=== PATIENT | male | born 1940 | race Caucasian/White ===

== ENCOUNTER 2023-06-04 07:49 | Day surgery (SDC) | payer MEDICARE, OTHER ==
[~2023-06-04 07:49] MED LIST: ALPRAZolam 0.25 MG TAB PO PRN; ALPRAZolam 0.5 MG TAB PO PRN; ASPIRIN 325 MG TAB PO PRN; HEPARIN SODIUM,PORCINE (1 ML) 2,500 UNIT in SODIUM CHLORIDE 0.9% 250 ML IRRIGATION PRN; HEPARIN SODIUM,PORCINE 10,000 UNIT in SODIUM CHLORIDE 0.9% 1,000 ML IRRIGATION PRN; SODIUM CHLORIDE 0.9% 1,000 ML in EMPTY BAG 1 BAG IV ONE; ZOLPIDEM 5 MG TAB PO PRN
[2023-06-04] MEDS ORDERED: ASPIRIN 81 MG ONE (08:05)
[2023-06-04] MEDS ORDERED: HEPARIN SODIUM 1,000 UN/ML (10ML VL) ONE (08:15)
[2023-06-04] MEDS ORDERED: fentaNYL (PF) 50 MCG/ML 2 ML AMP ONE (08:18)
[2023-06-04] MEDS ORDERED: LIDOCAINE 1% INJ 10MG/ML (20 ML MDV) SQ ONE (08:18)
[2023-06-04] MEDS ORDERED: MIDAZOLAM 2 MG/2 ML VIAL IVP ONE (08:19)
[2023-06-04] MEDS ORDERED: VERAPAMIL SYRINGE (5 MG/10 ML) INTRAARTER ONE (08:19)
[2023-06-04] MEDS ORDERED: fentaNYL (PF) 50 MCG/ML 2 ML AMP IVP ONE (08:19)
[2023-06-04 08:27] VITALS: RESP 18; TEMP 96.9
[2023-06-04] MEDS ORDERED: HEPARIN SODIUM 1,000 UN/ML (10ML VL) IV ONE (08:30)
[2023-06-04] MEDS ORDERED: NALOXONE 0.4 MG/ML 1 ML VIAL IVP PRN (08:35)
[2023-06-04] MEDS ORDERED: IOPAMIDOL-370 200ML BTL INJ ONE (08:36)
--- NOTE | 2023-06-04 08:40 | P.PCN ---
Date of Procedure: 06/04/23 Operative Findings: AN ABDOMINAL AORTOGRAM AND BILATERAL LOWER EXTREMITIES RUNOFF PERFORMING PHYSICIAN: Saurabh Anaya MD PROCEDURE PERFORMED: 1. An abdominal aortogram 2. Bilateral lower extremities runoff 3. Ultrasound guided access of the right radial artery INDICATION: Intermittent claudication concerning for severe PAD COMPLICATION: None LEVEL OF SEDATION: Moderate was sedation length of 17 minutes APPROACH: Right common femoral artery PROCEDURE DESCRIPTION: After obtaining informed consent and explaining the procedure benefits, risks, and complications, the patient was brought to the cardiac powerhouse laborer. The right radial artery was prepped and draped in sterile fashion. The right radial artery was cannulated using micropuncture technique, under ultrasound guidance. A micropuncture wire was advanced, and the micropuncture sheath was advanced over the wire, then the micropuncture sheath was exchanged over an 0.35 wire into a 5-Mohawk sheath dilator assembly then the wire and dilator were removed and sheath was flushed. We did an abdominal aortogram and bilateral lower extremities runoff using 5- Mohawk pigtail catheter using a power injection. The catheter was initially placed at the level of the renal arteries, and it was pulled into above the bifurcation of the aorta into right and left common iliac arteries. The procedure was completed and there was no complications. SELECTIVE PERIPHERAL ANGIOGRAM: The abdominal aorta: Has mild disease only The common iliac arteries: Both have mild disease only The external iliac arteries: Are normal The internal iliac arteries: Are patent The common femoral arteries: The right common femoral artery appears to have mild disease only and left common femoral artery appeared to have an intermediate disease only Superficial femoral arteries: The right SFA is occluded and the left SFA is occluded as well Popliteal arteries: Both appears to have [id number] disease Below the knees: Two-vessel runoff below the knee on the right with anterior tibial and peroneal and 3 vessels run off on the left CONCLUSION: 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
[2023-06-04] MEDS ORDERED: SODIUM CHLORIDE 0.9% 1,000 ML in EMPTY BAG 1 BAG IV SCH (08:45)
[2023-06-04 12:19] VITALS: BP 138/73; PULSE 76
--- NOTE | 2023-06-09 08:37 | IR ---
EXAMINATION TYPE: IR angio abdominal w runoff DATE OF EXAM: 06/04/2023 COMPARISON: NONE HISTORY: Fluoroscopy time. Fluoroscopy was provided to the referring clinician.
== END 2023-06-04 12:14 | disposition home or self-care (01) ==
LOC: CATHCVL 07:49
PROVIDERS: ATTEND Internal Medicine Interventional Cardiology
DX: I73.9 Peripheral vascular disease, unspecified (principal); I25.10 Atherosclerotic heart disease of native coronary artery without angina pectoris; I10 Essential (primary) hypertension; E78.5 Hyperlipidemia, unspecified; Z95.1 Presence of aortocoronary bypass graft; Z79.82 Long term (current) use of aspirin; Z79.899 Other long term (current) drug therapy
CPT/HCPCS: 36200; 75625; 75716; 76937; C1769 ×2; C1894; J2250; J2001; J3010; J1644; Q9967

== ENCOUNTER 2023-07-07 08:22 | Day surgery (SDC) | payer MEDICARE, OTHER ==
[~2023-07-07 08:22] MED LIST changes: -ALPRAZolam 0.5 MG TAB PO PRN; -SODIUM CHLORIDE 0.9% 1,000 ML in EMPTY BAG 1 BAG IV ONE
[2023-07-07] MEDS: SODIUM CHLORIDE 0.9% 1,000 ML IV ONE (08:34)
[2023-07-07 09:02] LABS: Basophils # (A) 0.1 k/uL (0-0.2); Basophils % (A) 1 %; Eosinophils # (A) 0.2 k/uL (0-0.7); Eosinophils % (A) 2 %; HCT 41.7 % (39.0-53.0); HGB 14.3 gm/dL (13.0-17.5); Lymphocytes # (A) 1.4 k/uL (1.0-4.8); Lymphocytes % (A) 20 %; MCH 33.3 pg (25.0-35.0); MCHC 34.4 g/dL (31.0-37.0); MCV 96.7 fL (80.0-100.0); Mean Platelet Volume 8.5; Monocytes # (A) 0.4 k/uL (0-1.0); Monocytes % (A) 6 %; Neutrophils # (A) 4.6 k/uL (1.3-7.7); Neutrophils % (A) 68 %; Platelet Count 222 k/uL (150-450); RBC 4.31 m/uL (4.30-5.90); RDW 13.1 % (11.5-15.5); WBC 6.8 k/uL (3.8-10.6)
[2023-07-07 09:11] LABS: African American GFR (CKD) >90 (>60 ml/min/1.73 sqM); Anion Gap 8 mmol/L; Blood Urea Nitrogen 11 mg/dL (9-20); Carbon Dioxide 24 mmol/L (22-30); Chloride 108 mmol/L (98-107); Glucose 121 mg/dL (74-99); Non-African American GFR(CKD) 78 (>60 ml/min/1.73 sqM); Potassium 3.8 mmol/L (3.5-5.1); Sodium 140 mmol/L (137-145)
[2023-07-07] MEDS: MIDAZOLAM 2 MG/2 ML VIAL IVP ONE (10:59)
[2023-07-07] MEDS: LIDOCAINE 1% INJ 10MG/ML (20 ML MDV) SQ ONE (11:02)
[2023-07-07] MEDS: HEPARIN SODIUM 1,000 UN/ML (10ML VL) IV ONE (11:11)
[2023-07-07] MEDS: HYDROmorphone 0.5 MG/0.5 ML SYRINGE IVP ONE (11:42)
[2023-07-07] MEDS ORDERED: niCARdipine 25 MG/10 ML VIAL ONE (13:13)
[2023-07-07] MEDS: NITROGLYCERIN 1000MCG/10ML SYRINGE INTRAARTER ONE (13:16)
[2023-07-07] MEDS: niCARdipine Syringe (1,000 mcg/10 mL) INTRAARTER ONE (13:17)
[2023-07-07] MEDS: IOPAMIDOL-250 100ML BTL INTRAARTER ONE (13:18)
[2023-07-07] MEDS: SODIUM CHLORIDE 0.9% 500 ML 500 ML with niCARdipine 6.25 MG, NITROGLYCERIN-D5W PMX 0.05... IV ONE (13:19)
[2023-07-07] MEDS ORDERED: NALOXONE 0.4 MG/ML 1 ML VIAL IVP PRN (13:27)
[2023-07-07] MEDS ORDERED: CLOPIDOGREL 75 MG TAB ONE (13:30)
--- NOTE | 2023-07-07 13:40 | P.PCN ---
Date of Procedure: 07/07/23 Operative Findings: PERCUTANEOUS PERIPHERAL INTERVENTION Performing physician Saurabh Anaya M.D. Procedure performed 1. Successful angioplasty and stenting of the right SFA 2. Adjunctive use of intravascular imaging and lithotripsy balloon and orbital atherectomy 3. Right lower extremity angiogram and left common femoral artery angiogram 4. Ultrasound guided access of the left common femoral artery and right anterior tibial artery Indication The patient is an 83-year-old gentleman who was diagnosis and he was symptomatic lower extremity is peripheral arterial disease documented by an angiogram. Please refer to the diagnostic angiogram was performed earlier Approach Left common femoral artery and right anterior tibial artery Complications None Level of sedation Moderate with a sedation time of 143 minutes Procedure description After obtaining an informed consent the patient was brought to the cardiac roving tester laboratory. The left common femoral artery was cannulated using micropuncture technique under ultrasound guidance the micro-puncture wire passed easily then I placed a 6-Finnish 70 cm sheath of the left common femoral artery after the artery was dilated using 6-Finnish dilator. Subsequently I did selective right profunda using 035 stiff Glidewire with a backup support of 5-Finnish rim catheter and then the sheath was advanced over the wire and the catheter to the right common femoral artery. Right lower extremity angiogram was performed and showed occluded right SFA and mild disease involving the right popliteal and 2 vessels run off below the knee with anterior tibial and poor opacification was seen for the posterior tibial and also the peroneal. After that attempting crossing the chronic total occlusion from of was unsuccessful in spite of using 018 and 035 wire. At that point I decided to cross the STREET ROLLER ENGINEER coming from down from the anterior tibial artery. Please note that anticoagulation was initiated using heparin with continuous ACT monitoring throughout the procedure. I accessed the anterior tibial artery using micro-puncture technique under ultrasound guidance and I placed a slender 5/6-Finnish sheath. Subsequently the sheath SideArm was conducted into a cocktail containing heparin and nitroglyceri n and verapamil. Subsequently I was ruled to cross the chronic total occlusion of the right SFA using 014 wire with a backup support of 14 catheter. After that I did intravascular ultrasound which showed heavily calcified right and in the proximal portion I was in the subcubut after that I was in the true lumen. After that I did exchange my wire into atherectomy wire and did orbital atherectomy of the right SFA. Subsequently I did balloon angioplasty using 6 mm balloon but the balloon was not fully expanded and for that reason he decided to do ballooning using lithotripsy/shock wave balloon. After that I did angiogram which showed good/adequate results in the proximal right SFA and dissection appeared to be flow-limiting in the right distal SFA. At that point I decided to cover that stent using stent so I deployed 7.0 x 140 mm Zilve PTX drug-coated stent which was postdilated using 6 mm balloon. Then 4 the proximal portion of the right SFA did balloon angioplasty using a drug-coated balloon. Final angiogram showed excellent angiographic results with by the end I did selective right common iliac angiogram which showed the area to be not flow-limiting and I decided to treat medically. No flow-limiting dissection was identified. By the end I did exchange my long sheath into short sheath using 0357 Glidewire and the procedure was completed was no complication. Postprocedure management 1. Dual antiplatelet therapy 2. Aggressive cholesterol control 3. Risk factors modification 4. Follow-up with the patient
[2023-07-07] MEDS: CLOPIDOGREL 75 MG TAB PO ONE (13:41)
--- NOTE | 2023-07-07 13:45 | IR ---
EXAMINATION TYPE: IR stent intravas non coronary DATE OF EXAM: 07/07/2023 COMPARISON: NONE HISTORY: Fluoroscopy time. Fluoroscopy was provided to the referring clinician.
[2023-07-07] MEDS: ONDANSETRON 4 MG/2 ML VIAL ONE (14:50)
[2023-07-07] MEDS: SODIUM CHLORIDE 0.9% 1,000 ML in EMPTY BAG 1 BAG IV SCH (18:31)
[2023-07-07] MEDS: SODIUM CHLORIDE 0.9% 1,000 ML in EMPTY BAG 1 BAG IV ONE (20:53)
[2023-07-08] MEDS: PANTOPRAZOLE 40 MG TABLET PO SCH (06:12)
[2023-07-08] MEDS: LEVOTHYROXINE 125 MCG TAB PO SCH (06:12)
[2023-07-08 06:55] VITALS: RESP 16
[2023-07-08 08:00] LABS: Basophils # (A) 0.1 k/uL (0-0.2); Basophils % (A) 1 %; Eosinophils # (A) 0.2 k/uL (0-0.7); Eosinophils % (A) 2 %; HCT 43.2 % (39.0-53.0); HGB 14.8 gm/dL (13.0-17.5); Lymphocytes # (A) 0.9 k/uL (1.0-4.8); Lymphocytes % (A) 9 %; MCH 33.4 pg (25.0-35.0); MCHC 34.2 g/dL (31.0-37.0); MCV 97.5 fL (80.0-100.0); Mean Platelet Volume 8.5; Monocytes # (A) 0.5 k/uL (0-1.0); Monocytes % (A) 5 %; Neutrophils # (A) 8.5 k/uL (1.3-7.7); Neutrophils % (A) 81 %; Platelet Count 224 k/uL (150-450); RBC 4.43 m/uL (4.30-5.90); WBC 10.5 k/uL (3.8-10.6)
[2023-07-08 08:18] LABS: African American GFR (CKD) >90 (>60 ml/min/1.73 sqM); Anion Gap 10 mmol/L; Blood Urea Nitrogen 9 mg/dL (9-20); Calcium 9.3 mg/dL (8.4-10.2); Carbon Dioxide 21 mmol/L (22-30); Chloride 109 mmol/L (98-107); Glucose 124 mg/dL (74-99); Non-African American GFR(CKD) 82 (>60 ml/min/1.73 sqM); Potassium 3.9 mmol/L (3.5-5.1); Sodium 140 mmol/L (137-145)
[2023-07-08] MEDS: ATORVASTATIN 20 MG TAB PO SCH (09:40)
[2023-07-08] MEDS: amLODIPine 5 MG TAB PO SCH (09:40)
[2023-07-08] MEDS: ASPIRIN 81 MG PO SCH (09:40)
[2023-07-08] MEDS: lisinopriL 20 MG TAB PO SCH (09:40)
[2023-07-08] MEDS: CLOPIDOGREL 75 MG TAB PO SCH (09:40)
[2023-07-08] MEDS: MULTIVITAMINS, THERA 1 EACH TAB PO SCH (09:40)
[2023-07-08] MEDS: PENTOXIFYLLINE 400 MG TABLET.ER PO SCH (11:58)
[2023-07-08 12:14] VITALS: BP 151/83; PULSE 83; TEMP 98.4
--- NOTE | 2023-07-08 13:15 | P.DS ---
Providers Attending physician: Saurabh Anaya Primary care physician: Ranjeet Muñoz MD Hospital Course: The patient is an 83-year-old gentleman who underwent yesterday successful stenting of the SFA with a good angiographic results and no complication The patient was seen and evaluated this morning. He is asymptomatic and he seemed medically stable. The left groin is soft and nontender was no bruises The patient is going to be discharged home on dual antiplatelet therapy and statin and I will follow-up with the patient next week in the office Plan - Discharge Summary Discharge Rx Participant: No New Discharge Prescriptions: New Clopidogrel [Plavix] 75 mg PO DAILY #90 tablet Continue Pantoprazole [Protonix] 40 mg PO DAILY Levothyroxine Sodium [Synthroid] 125 mcg PO DAILY Aspirin [Adult Low Dose Aspirin EC] 81 mg PO DAILY Unk Multi Vitamin 1 tab PO DAILY lisinopriL 40 mg PO DAILY amLODIPine [Norvasc] 5 mg PO DAILY Pentoxifylline [TRENtal] 400 mg PO DAILY Simvastatin 40 mg PO DAILY Discharge Medication List Aspirin [Adult Low Dose Aspirin EC] 81 mg PO DAILY 06/01/23 [History] Levothyroxine Sodium [Synthroid] 125 mcg PO DAILY 06/01/23 [History] Pantoprazole [Protonix] 40 mg PO DAILY 06/01/23 [History] Pentoxifylline [TRENtal] 400 mg PO DAILY 06/01/23 [History] Simvastatin 40 mg PO DAILY 06/01/23 [History] amLODIPine [Norvasc] 5 mg PO DAILY 06/01/23 [History] lisinopriL 40 mg PO DAILY 06/01/23 [History] Unk Multi Vitamin 1 tab PO DAILY 07/01/23 [History] Clopidogrel [Plavix] 75 mg PO DAILY #90 tablet 07/08/23 [Rx] Follow up Appointment(s)/Referral(s): Saurabh Anaya MD [STAFF PHYSICIAN] - 1 Week (THE OFFICE WILL CALL YOU WITH AN APPOINTMENT DATE AND TIME) Patient Instructions/Handouts: Peripheral Artery Disease (ED), Moderate Sedation (DC) Activity/Diet/Wound Care/Special Instructions: *NO LIFTING, PUSHING, OR PULLING ANYTHING OVER 5 POUND FOR 5 DAYS *NO DRIVING FOR 3 DAYS *YOU CAN REMOVE YOUR DRESSING TOMORROW BUT DO NOT SUBMERSE YOUR PUNCTURE SITE IN WATER FOR A FEW DAYS TO PREVENT INFECTION - SO NO TUB BATHS, POOLS, HOT TUBS, DISHES...ETC *ANY SIGNS OF BLEEDING (HARDNESS, SWELLING, OR EXCESSIVE BRUISING) HOLD DIRECT PRESSURE ON YOUR PUNCTURE SITE AND COME TO THE NEAREST EMERGENCY ROOM TO GET YOUR PUNCTURE SITE LOOKED AT - DO NOT DRIVE YOURSELF! EITHER CALL EMS OR HAVE SOMEONE DRIVE YOU!
== END 2023-07-08 14:16 | disposition home or self-care (01) ==
LOC: CATHCVL 08:22 → 3SCARD 13:25 → CATHCVL 07-08 14:16
PROVIDERS: ATTEND Internal Medicine Interventional Cardiology
DX: I73.9 Peripheral vascular disease, unspecified (principal); I25.10 Atherosclerotic heart disease of native coronary artery without angina pectoris; I10 Essential (primary) hypertension; E78.5 Hyperlipidemia, unspecified; Z79.82 Long term (current) use of aspirin; Z79.02 Long term (current) use of antithrombotics/antiplatelets; Z79.899 Other long term (current) drug therapy
CPT/HCPCS: 76937; 37252; 80048 ×2; 85025 ×2; 37225; C1894 ×2; C1769 ×7; C1714; C1725; C1887; C1753; C1874; C9767; C2623; J2250; J2405; J2001; J1644 ×2; J1170; Q9966; J2305 ×2

== ENCOUNTER 2023-07-21 08:42 | Day surgery (SDC) | payer MEDICARE, OTHER ==
[2023-07-15 12:36] VITALS: BMI 30.5
[~2023-07-21 08:42] MED LIST changes: -ALPRAZolam 0.25 MG TAB PO PRN; -HEPARIN SODIUM,PORCINE (1 ML) 2,500 UNIT in SODIUM CHLORIDE 0.9% 250 ML IRRIGATION PRN; -HEPARIN SODIUM,PORCINE 10,000 UNIT in SODIUM CHLORIDE 0.9% 1,000 ML IRRIGATION PRN; -ZOLPIDEM 5 MG TAB PO PRN
[2023-07-21] MEDS: SODIUM CHLORIDE 0.9% 1,000 ML IV ONE (09:07)
[2023-07-21] MEDS ORDERED: HEPARIN SODIUM 1,000 UN/ML (10ML VL) ONE (10:08)
[2023-07-21] MEDS: MIDAZOLAM 2 MG/2 ML VIAL IVP ONE ×2 (10:10→11:09)
[2023-07-21] MEDS ORDERED: LIDOCAINE 1% INJ 10MG/ML (20 ML MDV) ONE (10:23)
[2023-07-21] MEDS: LIDOCAINE 1% INJ 10MG/ML (20 ML MDV) SQ ONE (10:24)
--- NOTE | 2023-07-21 10:26 | IR ---
EXAMINATION TYPE: IR stent intravas non coronary DATE OF EXAM: 07/21/2023 FLUOROSCOPY Left iliac stenosis, 11.5min fluoro, 18.4Gycm2. 623 images submitted.
[2023-07-21] MEDS: HEPARIN SODIUM 1,000 UN/ML (10ML VL) IVP ONE (10:28)
[2023-07-21] MEDS: IOPAMIDOL-370 100ML BTL INJ ONE (11:57)
[2023-07-21] MEDS ORDERED: PANTOPRAZOLE 40 MG TABLET PO PRN (12:14)
[2023-07-21] MEDS ORDERED: NALOXONE 0.4 MG/ML 1 ML VIAL IVP PRN (12:15)
--- NOTE | 2023-07-21 12:21 | P.PCN ---
Date of Procedure: 07/21/23 Operative Findings: PERCUTANEOUS PERIPHERAL INTERVENTION Performing physician Saurabh Anaya M.D. Procedure performed 1. Successful balloon angioplasty and stenting of the left SFA 2. Adjunctive use of intravascular imaging and shockwave balloon and orbital atherectomy 3. Gradient measurement across the left common femoral artery 4. Successful balloon angioplasty of the left common femoral artery 5. Left lower extremity angiogram and right common femoral artery angiogram and ultrasound guided access of the right common femoral artery Indication Symptomatic 83-year-old gentleman who is known to have occluded left SFA Approach Right common femoral artery Complications None Level of sedation Moderate with a sedation time of 90 minutes Procedure description After obtaining an informed consent the patient was brought to the cardiac laborer adjustable steel joist. The right common femoral artery was cannulated using puncture technique under ultrasound guidance the micro-puncture wire passed easily then I placed a 6-Maltese 70 cm sheath in the right common femoral artery. Subsequently anticoagulation was initiated using heparin with continuous ACT monitoring. I did selective the left superficial femoral artery using 035 stiff Glidewire with a backup support of 5-Maltese rim catheter. After that I was able to advance the sheath over the wire and dilator to the proximal left common femoral artery. Left lower extremity angiogram was performed and showed 3 vessels run off below the knee on the left side with occluded left SFA and intermediate disease involving the left common femoral artery with eccentric lesion. I was able to cross the chronic total occlusion of the left SFA using 018 wire with a backup support of 18 catheter subsequently the catheter was advanced over the wire to the distal left SFA and contrast injection was performed to prove that I was in the true lumen. After that I did place an 014 atherectomy wire in the catheter and the catheter was pulled out. I did intravascular ultrasound over the 014 wire and that showed that the SFA was extremely calcified where the catheter was unable to cross the COLLECTION SYSTEMS TECHNICIAN segments. The measurement of the SFA diameter was a 6 mm. I did orbital atherectomy of the left SFA using low and intermediate and high-speed. After that I did balloon angioplasty using initially 5 mm noncompliant balloon and subsequently 7 mm shockwave balloon. After that an angiogram was performed and showed good angiographic results in the distal left SFA and dissection involving the proximal left SFA. For the distal left SFA I did drug-coated balloon which was 6 Hawthorne meter balloon with excellent angiographic results and for the proximal left SFA I did decided to stent so I placed/deployed 7.0 x 140 mm Zilver PTX drug-coated stent which was postdilated using 6 Hawthorne meter balloon with final angiogram showing excellent angiographic results. By the end because there was a concern about the lesion in the left common femoral artery gradient measurement and that came in to be at 26 mmHg. I did shockwave balloon using the 7 mm I added from before and an angiogram was performed showed better results. The patient tolerated the procedure very well. Subsequently I exchanged my long sheath into short sheath using 035 stiff Glidewire for I did selective right common femoral artery angiogram. The procedure very well and the procedure ended was no complication Postprocedure management 1. Dual antiplatelet therapy 2. Aggressive cholesterol control 3. Risk factors modification 4. Follow-up with the patient
[2023-07-21] MEDS: SODIUM CHLORIDE 0.9% 1,000 ML in EMPTY BAG 1 BAG IV ONE (15:34)
[2023-07-21] MEDS: SODIUM CHLORIDE 0.9% 500 ML 500 ML with niCARdipine 6.25 MG, NITROGLYCERIN-D5W PMX 0.05... IV ONE (15:34)
[2023-07-21] MEDS: SODIUM CHLORIDE 0.9% 1,000 ML in EMPTY BAG 1 BAG IV SCH (15:49)
--- NOTE | 2023-07-21 18:42 | IR ---
EXAMINATION TYPE: IR stent intravas non coronary DATE OF EXAM: 07/21/2023 FLUOROSCOPY LEFT leg stent, 32.9 min fluoro, 20.9Gycm2. 517 images submitted.
[2023-07-22 04:54] LABS: African American GFR (CKD) 82 (>60 ml/min/1.73 sqM); Non-African American GFR(CKD) 71 (>60 ml/min/1.73 sqM)
[2023-07-22] MEDS: LEVOTHYROXINE 125 MCG TAB PO SCH (06:30)
[2023-07-22] MEDS: ASPIRIN 81 MG PO SCH (08:10)
[2023-07-22] MEDS: MULTIVITAMINS, THERA 1 EACH TAB PO SCH (08:10)
[2023-07-22] MEDS: ATORVASTATIN 20 MG TAB PO SCH (08:10)
[2023-07-22] MEDS: CLOPIDOGREL 75 MG TAB PO SCH (08:10)
[2023-07-22] MEDS: lisinopriL 20 MG TAB PO SCH (08:10)
[2023-07-22] MEDS: amLODIPine 5 MG TAB PO SCH (08:10)
[2023-07-22] MEDS: PENTOXIFYLLINE 400 MG TABLET.ER PO SCH (08:11)
--- NOTE | 2023-07-22 08:14 | P.DS ---
Providers Attending physician: Saurabh Anaya Primary care physician: Ranjeet Muñoz MD Hospital Course: The patient is a pleasant 81-year-old gentleman who underwent yesterday a balloon angioplasty of the left SFA and left femoral artery with a good angiographic results He was seen and evaluated this morning. Right groin is soft and nontender was no bruises. The patient is asymptomatic and hemodynamically stable. The patient is going to be discharged home on dual antiplatelet therapy and I will follow-up with the patient next week in the office Plan - Discharge Summary Discharge Rx Participant: No New Discharge Prescriptions: Continue Pantoprazole [Protonix] 40 mg PO DAILY PRN PRN Reason: Heartburn Levothyroxine Sodium [Synthroid] 125 mcg PO DAILY Aspirin [Adult Low Dose Aspirin EC] 81 mg PO DAILY lisinopriL 40 mg PO DAILY amLODIPine [Norvasc] 5 mg PO DAILY Pentoxifylline [TRENtal] 400 mg PO DAILY Simvastatin 40 mg PO DAILY Clopidogrel [Plavix] 75 mg PO DAILY #90 tablet Multivitamins, Thera [Multivitamin (formulary)] 1 tab PO DAILY Discharge Medication List Aspirin [Adult Low Dose Aspirin EC] 81 mg PO DAILY 06/01/23 [History] Levothyroxine Sodium [Synthroid] 125 mcg PO DAILY 06/01/23 [History] Pantoprazole [Protonix] 40 mg PO DAILY PRN 06/01/23 [History] Pentoxifylline [TRENtal] 400 mg PO DAILY 06/01/23 [History] Simvastatin 40 mg PO DAILY 06/01/23 [History] amLODIPine [Norvasc] 5 mg PO DAILY 06/01/23 [History] lisinopriL 40 mg PO DAILY 06/01/23 [History] Clopidogrel [Plavix] 75 mg PO DAILY #90 tablet 07/08/23 [Rx] Multivitamins, Thera [Multivitamin (formulary)] 1 tab PO DAILY 07/15/23 [History] Follow up Appointment(s)/Referral(s): Saurabh Anaya MD [STAFF PHYSICIAN] - 1 Week
[2023-07-22] MEDS: ACETAMINOPHEN TAB 325 MG TAB PO PRN (08:56)
[2023-07-22 14:09] VITALS: BP 117/85; PULSE 82; RESP 16; TEMP 97.4
== END 2023-07-22 13:57 | disposition home or self-care (01) ==
LOC: CATHCVL 08:42 → 6NMEDSUR 11:46 → CATHCVL 07-22 13:57
PROVIDERS: ATTEND Internal Medicine Interventional Cardiology
DX: I70.213 Atherosclerosis of native arteries of extremities with intermittent claudication, bilateral legs (principal); I10 Essential (primary) hypertension; E78.5 Hyperlipidemia, unspecified; Z79.82 Long term (current) use of aspirin; Z79.899 Other long term (current) drug therapy
CPT/HCPCS: 76937; 37252; 82565; C1894 ×2; C1769 ×4; C1714; C1753; C1874; C9767; C1725; C2623; J2250; J2001; J1644; Q9967